=== PATIENT | male | born 1970 | race Two or more races ===

== ENCOUNTER 2018-02-04 11:24 | Emergency (ER) | payer BC ==
[~2018-02-04] VITALS: Ht 175.3 cm; Wt 91.0 kg
[2018-02-04] MEDS ORDERED: METHOCARBAMOL 750 MG TABLET PO ONE (12:00)
[2018-02-04] MEDS ORDERED: METHOCARBAMOL 750 MG TABLET ONE (12:00)
[2018-02-04] MEDS ORDERED: KETOROLAC 30 MG/1 ML ONE (12:00)
[2018-02-04] MEDS ORDERED: KETOROLAC 30 MG/1 ML IM ONE (12:00)
[2018-02-04 13:04] VITALS: BP 109/82
== END 2018-02-04 13:12 | disposition home or self-care (01) ==
LOC: ED 12:30
DX: M47.892 Other spondylosis, cervical region (principal)
CPT/HCPCS: 72050; 96372; 99284; J1885